=== PATIENT | female | born 1935 | race Asian ===

== ENCOUNTER 2019-09-01 10:40 | Inpatient (IN) | payer OTHER ==
[~2019-09-01] VITALS: Ht 152.4 cm; Wt 49.2 kg
[2019-09-01] MEDS ORDERED: DEXTROSE (50%) 50ML SYRG IV ONE (10:45)
[2019-09-01] MEDS ORDERED: SODIUM CHLORIDE 0.9% 500 ML IVB ONE (10:49)
[2019-09-01] MEDS ORDERED: cloNIDine HCL 0.1 MG TAB PO ONE (11:30)
[2019-09-01 12:03] LABS: Basophils # (auto) 0 10 ^3/uL (0-0.2); Basophils % (auto) 0.6 % (0.0-2.0); Eosinophils # (auto) 0 10 ^3/uL (0-0.8); Eosinophils % (auto) 0.1 % (0.0-7.0); Hematocrit 32.5 % (36.0-46.0); Hemoglobin 10.8 g/dL (12.2-16.2); Lymphocytes # (auto) 0.4 10 ^3/uL (0.4-5.4); Lymphocytes % (auto) 10.9 % (10.0-50.0); Mean Corpuscular Hemoglobin 31.8 pg (28.0-32.0); Mean Corpuscular Hgb Conc. 33.2 g/dL (32.0-36.0); Mean Corpuscular Volume 95.9 fL (80.0-100.0); Monocytes # (auto) 0.1 10 ^3/uL (0-1.3); Monocytes % (auto) 2.3 % (0.0-12.0); Neutrophils # (auto) 3.3 10 ^3/uL (1.6-8.6); Neutrophils % (auto) 86.1 % (37.0-80.0); Nucleated Red Blood Cells % 0.1 %; Platelet Count (auto) 216 10^3/uL (140-450); Red Blood Cells 3.39 10^6/uL (4.0-5.20); Red Cell Distribution Width 14.2 % (11.8-14.3); White Blood Cell 3.8 10^3/uL (4.4-10.8)
[2019-09-01 12:21] LABS: Albumin 2.5 g/dL (3.4-5.0); Anion Gap 7 (5-15); Blood Urea Nitrogen 29 mg/dL (7-18); Calcium 8.4 mg/dL (8.5-10.1); Carbon Dioxide 23 mmol/L (21-32); Chloride 112 mmol/L (98-107); Glucose 142 mg/dL (74-106); Sodium 142 mmol/L (136-145)
[2019-09-01 12:26] LABS: Alanine Aminotransferase 14 U/L (13-56); Alkaline Phosphatase 43 U/L (45-117); Aspartate Aminotransferase 24 U/L (15-37); BUN/Creatinine Ratio 16.7; Bilirubin, Total 0.4 mg/dL (0.2-1.0); Blood Alcohol < 3.0 mg/dL (0-5); GFR African American 36 mL/min; GFR Non-African American 30 mL/min; Total Protein 6.1 g/dL (6.4-8.2)
[2019-09-01] MEDS ORDERED: POTASSIUM CHL 20MEQ/100ML 100 ML IV ONE (12:45)
[2019-09-01] MEDS ORDERED: hydrALAZINE HCL 20 MG/ML VL IV ONE (13:45)
[2019-09-01] MEDS ORDERED: MORPHINE SULF INJ 2 MG/ML SYRINGE 1ML IV PRN (14:45)
[2019-09-01] MEDS ORDERED: NITROGLYCERIN 0.4 MG SL TAB SL PRN (14:45)
[2019-09-01] MEDS ORDERED: DEXTROSE (50%) 50ML SYRG IV PRN (15:00)
[2019-09-01] MEDS ORDERED: POTASSIUM EFFERVESENT TAB 25 MEQ PO ONE (15:00)
[2019-09-01] MEDS ORDERED: LACTULOSE 20Gm/30ML SOLN PO PRN (15:00)
[2019-09-01] MEDS ORDERED: ONDANSETRON HCL 4 MG/2 ML VIAL IV PRN (15:00)
[2019-09-01] MEDS ORDERED: ACETAMINOPHEN 500 MG TAB PO PRN (15:00)
[2019-09-01] MEDS ORDERED: traMADol HCL 50 MG TAB PO PRN (15:00)
[2019-09-01] MEDS: SODIUM CHLORIDE 0.9% 1,000 ML IV SCH (15:22)
[2019-09-01] MEDS: ACCU-CHEK COMFORT CURVE STRIP VI SCH ×2 (17:13→20:00)
[2019-09-01] MEDS ORDERED: GABA100C9 PO (18:44)
[2019-09-01] MEDS ORDERED: GLIP2.5T28 PO (18:44)
[2019-09-01] MEDS ORDERED: FURO20TA3 PO (18:44)
[2019-09-01] MEDS ORDERED: INSU1INJ4 SC (18:44)
[2019-09-01] MEDS ORDERED: CARV12.544 PO (18:44)
[2019-09-01] MEDS ORDERED: POTA10TA75 PO (18:44)
[2019-09-01] MEDS ORDERED: HYDR50TA15 PO (18:44)
[2019-09-01] MEDS ORDERED: ATOR20TA50 PO (18:46)
[2019-09-01] MEDS ORDERED: MULT-1018 PO (18:51)
[2019-09-01] MEDS ORDERED: CHOL20007 PO (18:51)
[2019-09-01] MEDS ORDERED: EPOE10003 IJ (18:55)
[2019-09-01] MEDS ORDERED: ISOS30TA4 PO (18:56)
[2019-09-01] MEDS: hydrALAZINE HCL 20 MG/ML VL IV PRN ×2 (20:32→22:58)
[2019-09-01 22:00] VITALS: BP 162/69
--- NOTE | 2019-09-01 22:00 | NUR ---
Telemetry admit from ER Patient admitted to Telemetry unit. Patient oriented to, primary RN, unit, room, bed, and unit policies regarding patient care and visiting hours. Patient now on continuous telemetry monitoring, tele box # [id number] and telemetry reading on arrival to unit is sinus rhythm. Patient weighed by bedscale and encouraged to call if they need something. All questions and concerns addressed, patient verbalized understanding. Safety precautions maintained bed is in lowest position and locked, bed rails 2x. Call light and bedside table are within reach.
[2019-09-01 22:05] VITALS: BP 162/69
--- NOTE | 2019-09-01 22:58 | NUR ---
Elevated Blood Pressure Patient BP 162/69 HR: 61, Medicated per MD orders IVP Hydralazine 10mg. At this time patient has no s/s of distress or SOB. Will continue to monitor Q1 and PRN.
--- NOTE | 2019-09-02 | NUR ---
Paged hospitalist Patient continuous to sustain high blood pressure. Awaiting call back. At this time patient has no s/s of distress or SOB. Will continue to monitor Q1 and PRN.
--- NOTE | 2019-09-02 00:56 | NUR ---
Call back from hospitalist Informed of patient's sustained high blood pressure. New orders received. Read back and verified, orders inputed. Will continue to monitor patient Q1 and PRN.
[2019-09-02] MEDS ORDERED: cloNIDine HCL 0.1 MG TAB PO ONE (01:15)
[2019-09-02] MEDS: hydrALAZINE HCL 20 MG/ML VL IV PRN ×3 (03:09→11:18)
[2019-09-02] MEDS: SODIUM CHLORIDE 0.9% 1,000 ML IV SCH ×2 (03:17→15:47)
[2019-09-02] MEDS: ACCU-CHEK COMFORT CURVE STRIP VI SCH ×5 (04:00→16:00)
[2019-09-02 05:00] VITALS: BP 163/65
--- NOTE | 2019-09-02 05:16 | NUR ---
Call back from hospitalist Informed hospitalist of sustained high blood pressure. BP 163/65 HR 59. New orders received, read back and verified, orders inputed. Will continue to monitor patient Q1 and PRN. At this time patient has no s/s of distress or SOB.
[2019-09-02] MEDS ORDERED: hydrALAZINE HCL 20 MG/ML VL IV ONE (05:30)
--- NOTE | 2019-09-02 07:30 | NUR ---
Opening Shift Note Assumed care of patient, awake and alert. No S/S of distress/SOB or pain. Instructed on POC and to call for assist PRN, will continue to monitor for changes Q1hr and PRN. Fall precautions in place per safety protocol.
[2019-09-02 07:31] LABS: Basophils # (auto) 0 10 ^3/uL (0-0.2); Eosinophils # (auto) 0.1 10 ^3/uL (0-0.8); Eosinophils % (auto) 2.6 % (0.0-7.0); Hematocrit 30.1 % (36.0-46.0); Hemoglobin 9.9 g/dL (12.2-16.2); Lymphocytes # (auto) 0.8 10 ^3/uL (0.4-5.4); Lymphocytes % (auto) 16.2 % (10.0-50.0); Mean Corpuscular Hemoglobin 31.5 pg (28.0-32.0); Mean Corpuscular Hgb Conc. 32.7 g/dL (32.0-36.0); Mean Corpuscular Volume 96.3 fL (80.0-100.0); Monocytes # (auto) 0.2 10 ^3/uL (0-1.3); Neutrophils # (auto) 3.6 10 ^3/uL (1.6-8.6); Neutrophils % (auto) 75.2 % (37.0-80.0); Nucleated Red Blood Cells % 0.1 %; Platelet Count (auto) 181 10^3/uL (140-450); Red Blood Cells 3.13 10^6/uL (4.0-5.20); Red Cell Distribution Width 14.1 % (11.8-14.3); White Blood Cell 4.8 10^3/uL (4.4-10.8)
--- NOTE | 2019-09-02 07:34 | NUR ---
End of Shift Note Endorsed care to dayshift RN. At this time patient has no s/s of distress or SOB, no complaints.
[2019-09-02 07:42] LABS: Urine Bacteria MANY /hpf (None Seen); Urine Blood Negative /uL (Negative); Urine Hyaline Cast MANY /lpf (0 - 2); Urine Mucus MANY (None Seen); Urine Specific Gravity 1.015 (1.001-1.035); Urine WBC 176 /hpf (0 - 5); Urine WBC Clumps PRESENT /hpf (None Seen)
[2019-09-02 07:50] LABS: Albumin 2.2 g/dL (3.4-5.0); Calcium 7.7 mg/dL (8.5-10.1); Potassium 3.8 mmol/L (3.5-5.1)
[2019-09-02 07:54] LABS: BUN/Creatinine Ratio 16.8; Bilirubin, Total 0.4 mg/dL (0.2-1.0); Total Protein 5.4 g/dL (6.4-8.2)
[2019-09-02 09:00] VITALS: BP 178/70
[2019-09-02] MEDS ORDERED: PANTOPRAZOLE 40 MG TAB PO SCH (10:00)
[2019-09-02] MEDS ORDERED: levoFLOXacin 500MG 100 ML IV ONE (10:00)
[2019-09-02] MEDS ORDERED: ENOXAPARIN SOD 30 MG/0.3 ML SYRINGE SC SCH (10:00)
[2019-09-02 13:42] VITALS: BP_SYST 129; BP_SYST 156; BP_DIAS 83; BP_DIAS 94
--- NOTE | 2019-09-02 14:12 | NUR ---
Hospitalist MD Rdz at bedside, aware of patient status. New orders for D/C Received, will carry out new orders.
[2019-09-02 18:17] VITALS: BP 156/83
--- NOTE | 2019-09-02 18:39 | NUR ---
Discharge instructions given as ordered. Encourage to follow up with PMD as instructed. All questions and concerns addressed. Patient verbalized understanding. Medication reconciliation form completed and copy given to patient. IV removed with catheter intact, pressure dressing applied. Telemetry unit returned to ICU. Patient taken to vehicle via wheelchair with all personal belongings, accompanied by staff. No distress noted at time of departure.
[2019-09-03] MEDS ORDERED: levoFLOXacin 250MG 50 ML IV SCH (10:00)
== END 2019-09-02 18:39 | disposition home or self-care (01) | DRG 637 ==
LOC: ER 10:40 → TELE 10:41 → TELE-WESTW 22:59
PROVIDERS: ADMIT Internal Medicine; ATTEND Internal Medicine
DX: E11.649 Type 2 diabetes mellitus with hypoglycemia without coma (principal); G93.41 Metabolic encephalopathy; E44.0 Moderate protein-calorie malnutrition; I16.1 Hypertensive emergency; N17.0 Acute kidney failure with tubular necrosis; D63.1 Anemia in chronic kidney disease; E11.22 Type 2 diabetes mellitus with diabetic chronic kidney disease; E78.5 Hyperlipidemia, unspecified; E87.6 Hypokalemia; I12.9 Hypertensive chronic kidney disease with stage 1 through stage 4 chronic kidney disease, or unspecified chronic kidney disease; N18.3 Chronic kidney disease, stage 3 (moderate); E11.21 Type 2 diabetes mellitus with diabetic nephropathy; Z79.4 Long term (current) use of insulin; Z82.49 Family history of ischemic heart disease and other diseases of the circulatory system; Z90.49 Acquired absence of other specified parts of digestive tract; Z68.21 Body mass index [BMI] 21.0-21.9, adult
CPT/HCPCS: 36415; 71045; 80053; 80320; 81001; 82962; 83036; 83880; 85025; 93005; G0378; J1956; J3480

== ENCOUNTER 2019-10-04 17:29 | Inpatient (IN) | payer OTHER ==
[~2019-10-04] VITALS: Ht 152.4 cm; Wt 54.0 kg
[~2019-10-04 17:29] MED LIST: ATOR20TA50 PO; CARV12.544 PO; CHOL20007 PO; EPOE10003 IJ; FURO20TA3 PO; GABA100C9 PO; GLIP2.5T28 PO; HYDR50TA15 PO; INSU1INJ4 SC; ISOS30TA4 PO; MULT-1018 PO; POTA10TA75 PO
[2019-10-04 18:20] LABS: Basophils # (auto) 0 10 ^3/uL (0-0.2); Basophils % (auto) 0.8 % (0.0-2.0); Eosinophils # (auto) 0.1 10 ^3/uL (0-0.8); Eosinophils % (auto) 1.6 % (0.0-7.0); Hematocrit 33.1 % (36.0-46.0); Hemoglobin 10.6 g/dL (12.2-16.2); Lymphocytes # (auto) 0.9 10 ^3/uL (0.4-5.4); Mean Corpuscular Hemoglobin 30.2 pg (28.0-32.0); Mean Corpuscular Volume 94.4 fL (80.0-100.0); Monocytes # (auto) 0.2 10 ^3/uL (0-1.3); Monocytes % (auto) 5.3 % (0.0-12.0); Neutrophils # (auto) 3.3 10 ^3/uL (1.6-8.6); Neutrophils % (auto) 72.3 % (37.0-80.0); Platelet Count (auto) 210 10^3/uL (140-450); Red Blood Cells 3.51 10^6/uL (4.0-5.20); Red Cell Distribution Width 14.8 % (11.8-14.3); White Blood Cell 4.6 10^3/uL (4.4-10.8)
[2019-10-04 18:35] LABS: Albumin 2.6 g/dL (3.4-5.0); Calcium 8.3 mg/dL (8.5-10.1); Potassium 3.3 mmol/L (3.5-5.1)
[2019-10-04 18:41] LABS: BUN/Creatinine Ratio 26.5; Bilirubin, Total 0.3 mg/dL (0.2-1.0); Total Protein 6.5 g/dL (6.4-8.2)
[2019-10-04 18:57] LABS: Urine Amorphous Crystal FEW /hpf (None Seen); Urine Bacteria MANY /hpf (None Seen); Urine Blood Negative /uL (Negative); Urine Hyaline Cast FEW /lpf (0 - 2); Urine Mucus FEW (None Seen); Urine Specific Gravity 1.016 (1.001-1.035); Urine WBC 50 /hpf (0 - 5); Urine WBC Clumps PRESENT /hpf (None Seen)
[2019-10-04] MEDS ORDERED: ENOXAPARIN SOD 60 MG/0.6 ML SYRINGE SC ONE (21:00)
[2019-10-04] MEDS ORDERED: cefTRIAXone 1GM/50ML D5W 50 ML IV ONE (21:00)
[2019-10-04] MEDS ORDERED: AZITHROMYCIN 500MG/ 250ML 250 ML IV ONE (21:15)
[2019-10-04] MEDS ORDERED: POTASSIUM CHL 20 Meq TABLET PO ONE (22:15)
[2019-10-04] MEDS ORDERED: NITROGLYCERIN 0.4 MG SL TAB SL PRN (22:15)
[2019-10-04] MEDS ORDERED: ACETAMINOPHEN 325 MG TAB PO PRN (22:15)
[2019-10-04] MEDS ORDERED: DEXTROSE (50%) 50ML SYRG IV PRN (22:15)
[2019-10-04] MEDS ORDERED: ONDANSETRON HCL 4 MG/2 ML VIAL IV PRN (22:15)
[2019-10-04] MEDS ORDERED: MORPHINE SULF INJ 2 MG/ML SYRINGE 1ML IV PRN (22:15)
[2019-10-05] VITALS (7 sets, daily range): BP systolic 150–169; BP diastolic 53–77
[2019-10-05] MEDS ORDERED: LABETALOL HCL 200 MG TAB PO ONE (01:45)
[2019-10-05] MEDS ORDERED: hydrALAZINE HCL 20 MG/ML VL IV ONE (03:15)
[2019-10-05] MEDS: ACCU-CHEK COMFORT CURVE STRIP VI SCH ×4 (06:31→21:56)
[2019-10-05] MEDS: InsuLIN REG 1unit/0.01ml Soln (100units/ml) SC SCH ×4 (06:37→21:58)
[2019-10-05 09:16] LABS: Basophils # (auto) 0 10 ^3/uL (0-0.2); Basophils % (auto) 0.7 % (0.0-2.0); Eosinophils # (auto) 0.1 10 ^3/uL (0-0.8); Eosinophils % (auto) 1.2 % (0.0-7.0); Hematocrit 28.1 % (36.0-46.0); Hemoglobin 9.3 g/dL (12.2-16.2); Lymphocytes % (auto) 18.1 % (10.0-50.0); Mean Corpuscular Hemoglobin 31.2 pg (28.0-32.0); Mean Corpuscular Hgb Conc. 33.2 g/dL (32.0-36.0); Mean Corpuscular Volume 93.9 fL (80.0-100.0); Monocytes # (auto) 0.3 10 ^3/uL (0-1.3); Monocytes % (auto) 5.2 % (0.0-12.0); Neutrophils # (auto) 4.1 10 ^3/uL (1.6-8.6); Neutrophils % (auto) 74.8 % (37.0-80.0); Platelet Count (auto) 194 10^3/uL (140-450); Red Blood Cells 2.99 10^6/uL (4.0-5.20); Red Cell Distribution Width 14.6 % (11.8-14.3); White Blood Cell 5.5 10^3/uL (4.4-10.8)
[2019-10-05 09:29] LABS: Albumin 2.3 g/dL (3.4-5.0); Calcium 8.3 mg/dL (8.5-10.1); Potassium 3.5 mmol/L (3.5-5.1)
[2019-10-05] MEDS: PANTOPRAZOLE 40 MG TAB PO SCH (09:31)
[2019-10-05] MEDS: ISOSORBIDE MONONITRATE ER 60 MG TAB PO SCH (09:32)
[2019-10-05] MEDS: CARVEDILOL 12.5 MG TAB PO SCH ×2 (09:33→22:04)
[2019-10-05 09:36] LABS: BUN/Creatinine Ratio 24.2; Bilirubin, Total 0.3 mg/dL (0.2-1.0); Total Protein 5.8 g/dL (6.4-8.2)
[2019-10-05] MEDS ORDERED: FUROSEMIDE 40 MG TAB PO SCH (10:00)
[2019-10-05] MEDS ORDERED: hydrALAZINE HCL 25 MG TAB PO SCH (10:00)
[2019-10-05] MEDS ORDERED: CHOLECALCIFEROL (VITD3) 2,000 UNIT CAP PO SCH (10:00)
[2019-10-05] MEDS ORDERED: DOXYCYCLINE 100MG/250ML 250 ML IV SCH (10:00)
[2019-10-05] MEDS ORDERED: ASCORBIC ACID 1,000 MG TAB PO SCH (10:00)
[2019-10-05] MEDS ORDERED: ZINC SULFATE 220mg CAP or TAB PO SCH (10:00)
[2019-10-05] MEDS ORDERED: cefTRIAXone 1GM/50ML D5W 50 ML IV ONE (10:45)
[2019-10-05] MEDS: hydrALAZINE HCL 25 MG TAB PO SCH ×2 (14:10→22:03)
[2019-10-05] MEDS: ATORVASTATIN 20 MG TAB PO SCH (22:05)
[2019-10-05] MEDS: GABAPENTIN 100 MG CAP PO SCH (22:06)
[2019-10-06] VITALS (7 sets, daily range): BP systolic 150–165; BP diastolic 54–66
[2019-10-06] MEDS: hydrALAZINE HCL 25 MG TAB PO SCH ×3 (06:00→22:21)
[2019-10-06] MEDS: ACCU-CHEK COMFORT CURVE STRIP VI SCH ×4 (06:32→22:03)
[2019-10-06] MEDS: InsuLIN REG 1unit/0.01ml Soln (100units/ml) SC SCH ×4 (06:33→22:19)
[2019-10-06 07:14] LABS: Basophils # (auto) 0 10 ^3/uL (0-0.2); Basophils % (auto) 0.8 % (0.0-2.0); Eosinophils # (auto) 0.1 10 ^3/uL (0-0.8); Eosinophils % (auto) 1.5 % (0.0-7.0); Hematocrit 26.4 % (36.0-46.0); Hemoglobin 8.9 g/dL (12.2-16.2); Lymphocytes # (auto) 0.8 10 ^3/uL (0.4-5.4); Lymphocytes % (auto) 16.1 % (10.0-50.0); Mean Corpuscular Hemoglobin 31.4 pg (28.0-32.0); Mean Corpuscular Hgb Conc. 33.6 g/dL (32.0-36.0); Mean Corpuscular Volume 93.4 fL (80.0-100.0); Monocytes # (auto) 0.3 10 ^3/uL (0-1.3); Monocytes % (auto) 5.3 % (0.0-12.0); Neutrophils # (auto) 3.7 10 ^3/uL (1.6-8.6); Neutrophils % (auto) 76.3 % (37.0-80.0); Platelet Count (auto) 182 10^3/uL (140-450); Red Blood Cells 2.83 10^6/uL (4.0-5.20); Red Cell Distribution Width 14.8 % (11.8-14.3); White Blood Cell 4.9 10^3/uL (4.4-10.8)
[2019-10-06 07:43] LABS: BUN/Creatinine Ratio 27.3; Calcium 7.9 mg/dL (8.5-10.1); Potassium 3.3 mmol/L (3.5-5.1)
[2019-10-06] MEDS: GABAPENTIN 100 MG CAP PO SCH ×2 (08:37→22:23)
[2019-10-06] MEDS: ISOSORBIDE MONONITRATE ER 60 MG TAB PO SCH (08:38)
[2019-10-06] MEDS: CARVEDILOL 12.5 MG TAB PO SCH ×2 (08:38→22:20)
[2019-10-06] MEDS ORDERED: FUROSEMIDE 20 MG TAB PO SCH (10:00)
[2019-10-06] MEDS ORDERED: POTASSIUM CHL 20 Meq TABLET PO ONE (10:30)
[2019-10-06] MEDS ORDERED: ASPirin 81 mg TAB PO ONE (10:45)
[2019-10-06] MEDS: cefTRIAXone 1GM/50ML D5W 50 ML IV SCH (11:31)
[2019-10-06] MEDS: PANTOPRAZOLE 40 MG TAB PO SCH (11:39)
[2019-10-06] MEDS ORDERED: predniSONE 20 MG TAB PO ONE (14:15)
[2019-10-06] MEDS ORDERED: FAMOTIDINE (10MG/ML) 2ML VL IV SCH (22:00)
[2019-10-06] MEDS ORDERED: diphenhdrAMINE HCL 25 MG CAP PO SCH (22:00)
[2019-10-06] MEDS: ATORVASTATIN 20 MG TAB PO SCH (22:23)
[2019-10-07 05:00] VITALS: BP 132/58
[2019-10-07] MEDS: hydrALAZINE HCL 25 MG TAB PO SCH ×3 (05:37→22:15)
[2019-10-07 06:24] LABS: BUN/Creatinine Ratio 22.1; Calcium 8.3 mg/dL (8.5-10.1); Potassium 3.6 mmol/L (3.5-5.1)
[2019-10-07] MEDS: ACCU-CHEK COMFORT CURVE STRIP VI SCH ×4 (06:25→22:12)
[2019-10-07] MEDS: InsuLIN REG 1unit/0.01ml Soln (100units/ml) SC SCH ×4 (06:27→22:00)
[2019-10-07 06:32] LABS: INR 1.03 (0.9-1.15); Partial Thromboplastin Time 33.2 sec (23.0-31.2)
[2019-10-07] MEDS: cefTRIAXone 1GM/50ML D5W 50 ML IV SCH (08:33)
[2019-10-07] MEDS ORDERED: SODIUM CHLORIDE 0.9% 1,000 ML IV SCH ×2 (09:00→11:00)
[2019-10-07 09:16] VITALS: BP 158/69
[2019-10-07] MEDS ORDERED: ACETYLCYSTEINE ORAL for CIN 20%(200MG/ML) 4ML PO SCH (10:00)
[2019-10-07] MEDS ORDERED: predniSONE 20 MG TAB PO SCH (10:00)
[2019-10-07 10:38] LABS: Basophils # (auto) 0 10 ^3/uL (0-0.2); Basophils % (auto) 0.1 % (0.0-2.0); Eosinophils # (auto) 0 10 ^3/uL (0-0.8); Hematocrit 26.7 % (36.0-46.0); Lymphocytes # (auto) 0.6 10 ^3/uL (0.4-5.4); Lymphocytes % (auto) 21.6 % (10.0-50.0); Mean Corpuscular Hemoglobin 31.5 pg (28.0-32.0); Mean Corpuscular Hgb Conc. 33.6 g/dL (32.0-36.0); Mean Corpuscular Volume 93.7 fL (80.0-100.0); Monocytes # (auto) 0.1 10 ^3/uL (0-1.3); Monocytes % (auto) 4.6 % (0.0-12.0); Neutrophils # (auto) 1.9 10 ^3/uL (1.6-8.6); Neutrophils % (auto) 73.7 % (37.0-80.0); Nucleated Red Blood Cells % 0.1 %; Platelet Count (auto) 194 10^3/uL (140-450); Red Blood Cells 2.85 10^6/uL (4.0-5.20); Red Cell Distribution Width 14.8 % (11.8-14.3); White Blood Cell 2.6 10^3/uL (4.4-10.8)
[2019-10-07] MEDS: GABAPENTIN 100 MG CAP PO SCH ×2 (12:35→22:14)
[2019-10-07] MEDS: ASPirin 81 mg TAB PO SCH (12:36)
[2019-10-07] MEDS: ISOSORBIDE MONONITRATE ER 60 MG TAB PO SCH (12:41)
[2019-10-07] MEDS: CARVEDILOL 12.5 MG TAB PO SCH ×2 (12:42→22:15)
[2019-10-07 13:00] VITALS: BP 188/78
[2019-10-07 17:00] VITALS: BP 201/85
[2019-10-07 22:00] VITALS: BP 163/72
[2019-10-07] MEDS: ATORVASTATIN 20 MG TAB PO SCH (22:14)
[2019-10-08 05:00] VITALS: BP 149/59
[2019-10-08] MEDS: ACCU-CHEK COMFORT CURVE STRIP VI SCH ×4 (06:24→22:07)
[2019-10-08] MEDS: hydrALAZINE HCL 25 MG TAB PO SCH ×3 (06:24→22:06)
[2019-10-08] MEDS: InsuLIN REG 1unit/0.01ml Soln (100units/ml) SC SCH ×4 (06:24→22:43)
[2019-10-08 07:45] LABS: Basophils # (auto) 0 10 ^3/uL (0-0.2); Basophils % (auto) 0.6 % (0.0-2.0); Hemoglobin 8.3 g/dL (12.2-16.2); Lymphocytes # (auto) 1.3 10 ^3/uL (0.4-5.4); Monocytes # (auto) 0.4 10 ^3/uL (0-1.3); White Blood Cell 5.5 10^3/uL (4.4-10.8)
[2019-10-08 07:49] LABS: Eosinophils # (auto) 0.1 10 ^3/uL (0-0.8); Eosinophils % (auto) 1.1 % (0.0-7.0); Hematocrit 25.1 % (36.0-46.0); Lymphocytes % (auto) 23.6 % (10.0-50.0); Mean Corpuscular Hemoglobin 30.9 pg (28.0-32.0); Mean Corpuscular Volume 93.7 fL (80.0-100.0); Neutrophils # (auto) 3.7 10 ^3/uL (1.6-8.6); Neutrophils % (auto) 66.7 % (37.0-80.0); Nucleated Red Blood Cells % 0.1 %; Platelet Count (auto) 193 10^3/uL (140-450); Red Blood Cells 2.68 10^6/uL (4.0-5.20); Red Cell Distribution Width 14.7 % (11.8-14.3)
[2019-10-08 08:05] LABS: Albumin 2.3 g/dL (3.4-5.0); Calcium 8.1 mg/dL (8.5-10.1); Potassium 3.6 mmol/L (3.5-5.1)
[2019-10-08 08:10] LABS: BUN/Creatinine Ratio 19.5; Bilirubin, Total 0.3 mg/dL (0.2-1.0); Total Protein 5.5 g/dL (6.4-8.2)
[2019-10-08 08:29] VITALS: BP 157/66
[2019-10-08] MEDS: cefTRIAXone 1GM/50ML D5W 50 ML IV SCH (08:54)
[2019-10-08 09:00] VITALS: BP 157/66
[2019-10-08] MEDS: ISOSORBIDE MONONITRATE ER 60 MG TAB PO SCH ×2 (09:51→10:04)
[2019-10-08] MEDS: ASPirin 81 mg TAB PO SCH ×2 (09:51→10:03)
[2019-10-08] MEDS: FAMOTIDINE 20 MG TAB PO SCH ×2 (09:51→10:03)
[2019-10-08] MEDS: CARVEDILOL 12.5 MG TAB PO SCH ×2 (09:52→22:00)
[2019-10-08] MEDS: GABAPENTIN 100 MG CAP PO SCH ×2 (10:06→22:06)
[2019-10-08 13:00] VITALS: BP 185/68
[2019-10-08 17:00] VITALS: BP 158/72
[2019-10-08] MEDS: hydrALAZINE HCL 20 MG/ML VL IV PRN (19:33)
[2019-10-08 22:00] VITALS: BP 149/73
[2019-10-08] MEDS: ATORVASTATIN 20 MG TAB PO SCH (22:06)
[2019-10-09] VITALS: BP 120/56
[2019-10-09 05:00] VITALS: BP 144/63
[2019-10-09] MEDS: hydrALAZINE HCL 25 MG TAB PO SCH ×3 (06:02→21:57)
[2019-10-09] MEDS: ACCU-CHEK COMFORT CURVE STRIP VI SCH ×4 (06:52→21:57)
[2019-10-09] MEDS: InsuLIN REG 1unit/0.01ml Soln (100units/ml) SC SCH ×4 (06:52→21:58)
[2019-10-09 09:00] VITALS: BP 167/67
[2019-10-09] MEDS: GABAPENTIN 100 MG CAP PO SCH ×2 (10:41→21:57)
[2019-10-09] MEDS: ASPirin 81 mg TAB PO SCH (10:41)
[2019-10-09] MEDS: cefTRIAXone 1GM/50ML D5W 50 ML IV SCH (10:41)
[2019-10-09] MEDS: ISOSORBIDE MONONITRATE ER 60 MG TAB PO SCH (10:42)
[2019-10-09] MEDS: FAMOTIDINE 20 MG TAB PO SCH (10:42)
[2019-10-09] MEDS: CARVEDILOL 12.5 MG TAB PO SCH ×2 (10:43→21:58)
[2019-10-09] MEDS: hydrALAZINE HCL 20 MG/ML VL IV PRN (11:57)
[2019-10-09] MEDS ORDERED: NIFEdipine ER 30 MG TAB PO ONE (12:45)
[2019-10-09 13:16] VITALS: BP 175/61
[2019-10-09 17:00] VITALS: BP 136/62
[2019-10-09 17:21] LABS: BUN/Creatinine Ratio 24.2; Calcium 7.8 mg/dL (8.5-10.1); Potassium 4.2 mmol/L (3.5-5.1)
[2019-10-09] MEDS: ATORVASTATIN 20 MG TAB PO SCH (21:57)
[2019-10-09 22:00] VITALS: BP 125/59
[2019-10-09] MEDS ORDERED: ACETYLCYSTEINE ORAL for CIN 20%(200MG/ML) 4ML PO SCH (22:00)
[2019-10-10 05:00] VITALS: BP 212/59
[2019-10-10] MEDS: InsuLIN REG 1unit/0.01ml Soln (100units/ml) SC SCH ×4 (06:00→22:00)
[2019-10-10] MEDS: hydrALAZINE HCL 25 MG TAB PO SCH ×3 (06:00→22:19)
[2019-10-10] MEDS: ACCU-CHEK COMFORT CURVE STRIP VI SCH ×4 (06:00→22:19)
[2019-10-10] MEDS ORDERED: diphenhdrAMINE HCL 25 MG CAP PO ONE (07:00)
[2019-10-10 07:09] LABS: Basophils # (auto) 0 10 ^3/uL (0-0.2); Eosinophils # (auto) 0.2 10 ^3/uL (0-0.8); Hemoglobin 8.4 g/dL (12.2-16.2); Mean Corpuscular Hemoglobin 31.3 pg (28.0-32.0); Mean Corpuscular Hgb Conc. 33.2 g/dL (32.0-36.0); Mean Corpuscular Volume 94.5 fL (80.0-100.0); Neutrophils # (auto) 3.7 10 ^3/uL (1.6-8.6); White Blood Cell 5.5 10^3/uL (4.4-10.8)
[2019-10-10 07:11] LABS: Basophils % (auto) 0.5 % (0.0-2.0); Eosinophils % (auto) 3.7 % (0.0-7.0); Hematocrit 25.2 % (36.0-46.0); Lymphocytes # (auto) 1.1 10 ^3/uL (0.4-5.4); Lymphocytes % (auto) 19.8 % (10.0-50.0); Monocytes # (auto) 0.5 10 ^3/uL (0-1.3); Monocytes % (auto) 9.5 % (0.0-12.0); Neutrophils % (auto) 66.5 % (37.0-80.0); Platelet Count (auto) 199 10^3/uL (140-450); Red Blood Cells 2.67 10^6/uL (4.0-5.20); Red Cell Distribution Width 14.4 % (11.8-14.3)
[2019-10-10 07:18] LABS: Partial Thromboplastin Time 30.7 sec (23.0-31.2)
[2019-10-10 07:40] LABS: Potassium 4.2 mmol/L (3.5-5.1)
[2019-10-10] MEDS ORDERED: LIDOCAINE 2%HCL (LOCAL ANESTH.) INJ 20ML MDV ONE (07:45)
[2019-10-10] MEDS ORDERED: HEPARIN IN NS 1000Units/500mL 0 ML ONE (07:45)
[2019-10-10] MEDS ORDERED: IODIXANOL 320MG/ML 100ML BTL IV ONE (07:45)
[2019-10-10 07:47] LABS: Albumin 2.2 g/dL (3.4-5.0); BUN/Creatinine Ratio 25.4; Bilirubin, Total 0.2 mg/dL (0.2-1.0); Calcium 7.8 mg/dL (8.5-10.1); Total Protein 5.4 g/dL (6.4-8.2)
[2019-10-10 09:00] VITALS: BP 124/56
[2019-10-10] MEDS: FAMOTIDINE 20 MG TAB PO SCH (09:49)
[2019-10-10] MEDS: ISOSORBIDE MONONITRATE ER 60 MG TAB PO SCH (09:49)
[2019-10-10] MEDS: ASPirin 81 mg TAB PO SCH (09:49)
[2019-10-10] MEDS: GABAPENTIN 100 MG CAP PO SCH ×2 (09:50→22:18)
[2019-10-10] MEDS: cefTRIAXone 1GM/50ML D5W 50 ML IV SCH (09:51)
[2019-10-10] MEDS: CARVEDILOL 12.5 MG TAB PO SCH ×2 (09:51→22:00)
[2019-10-10] MEDS ORDERED: NIFEdipine ER 30 MG TAB PO SCH (10:00)
[2019-10-10] MEDS ORDERED: hydrALAZINE HCL 20 MG/ML VL IV PRN (11:15)
[2019-10-10 13:00] VITALS: BP 117/55
[2019-10-10 17:00] VITALS: BP 117/54
[2019-10-10 22:00] VITALS: BP 124/59
[2019-10-10] MEDS: ATORVASTATIN 20 MG TAB PO SCH (22:18)
[2019-10-11 05:00] VITALS: BP 115/75
[2019-10-11] MEDS: hydrALAZINE HCL 25 MG TAB PO SCH ×3 (06:20→21:47)
[2019-10-11] MEDS: InsuLIN REG 1unit/0.01ml Soln (100units/ml) SC SCH ×4 (06:45→21:54)
[2019-10-11] MEDS: ACCU-CHEK COMFORT CURVE STRIP VI SCH ×4 (06:45→21:50)
[2019-10-11 06:47] LABS: Albumin 2.2 g/dL (3.4-5.0); BUN/Creatinine Ratio 24.7; Calcium 7.9 mg/dL (8.5-10.1); Potassium 4.8 mmol/L (3.5-5.1)
[2019-10-11 06:50] LABS: Bilirubin, Total 0.2 mg/dL (0.2-1.0); Total Protein 5.5 g/dL (6.4-8.2)
[2019-10-11 08:00] VITALS: BP 122/58
[2019-10-11] MEDS: FAMOTIDINE 20 MG TAB PO SCH (09:30)
[2019-10-11] MEDS: ASPirin 81 mg TAB PO SCH (09:30)
[2019-10-11] MEDS: CARVEDILOL 12.5 MG TAB PO SCH ×2 (09:31→21:50)
[2019-10-11] MEDS: ISOSORBIDE MONONITRATE ER 60 MG TAB PO SCH (09:31)
[2019-10-11] MEDS: GABAPENTIN 100 MG CAP PO SCH ×2 (09:31→21:46)
[2019-10-11] MEDS: cefTRIAXone 1GM/50ML D5W 50 ML IV SCH (09:32)
[2019-10-11] MEDS ORDERED: SODIUM CHLORIDE 0.9% 1,000 ML IV SCH (11:00)
[2019-10-11] MEDS: SODIUM CHLORIDE 0.9% 1,000 ML IV SCH ×2 (11:15→23:50)
[2019-10-11 12:00] VITALS: BP 137/64
[2019-10-11 16:00] VITALS: BP 137/57
[2019-10-11] MEDS: ATORVASTATIN 20 MG TAB PO SCH (21:47)
[2019-10-11 22:03] VITALS: BP 145/60
[2019-10-12 05:19] VITALS: BP 157/72
[2019-10-12 06:10] LABS: Potassium 4.7 mmol/L (3.5-5.1)
[2019-10-12] MEDS: hydrALAZINE HCL 25 MG TAB PO SCH ×3 (06:10→21:03)
[2019-10-12 06:25] LABS: BUN/Creatinine Ratio 24.6; Bilirubin, Total 0.1 mg/dL (0.2-1.0); Calcium 7.3 mg/dL (8.5-10.1); Total Protein 4.9 g/dL (6.4-8.2)
[2019-10-12] MEDS: ACCU-CHEK COMFORT CURVE STRIP VI SCH ×4 (06:46→21:04)
[2019-10-12] MEDS: InsuLIN REG 1unit/0.01ml Soln (100units/ml) SC SCH ×4 (06:47→21:05)
[2019-10-12 09:16] VITALS: BP 148/53
[2019-10-12] MEDS: ASPirin 81 mg TAB PO SCH (09:23)
[2019-10-12] MEDS: cefTRIAXone 1GM/50ML D5W 50 ML IV SCH (09:23)
[2019-10-12] MEDS: CARVEDILOL 12.5 MG TAB PO SCH ×2 (09:24→21:04)
[2019-10-12] MEDS: FAMOTIDINE 20 MG TAB PO SCH (09:24)
[2019-10-12] MEDS: ISOSORBIDE MONONITRATE ER 60 MG TAB PO SCH (09:24)
[2019-10-12] MEDS: GABAPENTIN 100 MG CAP PO SCH ×2 (09:24→21:04)
[2019-10-12 12:44] VITALS: BP_SYST 15; BP_SYST 157; BP_DIAS 57
[2019-10-12] MEDS: SODIUM CHLORIDE 0.9% 1,000 ML IV SCH (12:49)
[2019-10-12 17:02] VITALS: BP 137/60
[2019-10-12 21:00] VITALS: BP 137/47
[2019-10-12] MEDS: ATORVASTATIN 20 MG TAB PO SCH (21:04)
[2019-10-13] MEDS: SODIUM CHLORIDE 0.9% 1,000 ML IV SCH ×2 (00:45→06:44)
[2019-10-13 05:00] VITALS: BP 163/68
[2019-10-13 06:07] LABS: Albumin 1.9 g/dL (3.4-5.0); Calcium 7.3 mg/dL (8.5-10.1); Potassium 4.3 mmol/L (3.5-5.1)
[2019-10-13] MEDS: hydrALAZINE HCL 25 MG TAB PO SCH ×3 (06:07→21:27)
[2019-10-13] MEDS: InsuLIN REG 1unit/0.01ml Soln (100units/ml) SC SCH ×4 (06:08→21:28)
[2019-10-13] MEDS: ACCU-CHEK COMFORT CURVE STRIP VI SCH ×4 (06:08→21:28)
[2019-10-13 06:11] LABS: BUN/Creatinine Ratio 29.8; Bilirubin, Total 0.1 mg/dL (0.2-1.0); Total Protein 4.8 g/dL (6.4-8.2)
[2019-10-13 09:00] VITALS: BP 150/60
[2019-10-13] MEDS: FAMOTIDINE 20 MG TAB PO SCH (09:37)
[2019-10-13] MEDS: ASPirin 81 mg TAB PO SCH (09:37)
[2019-10-13] MEDS: cefTRIAXone 1GM/50ML D5W 50 ML IV SCH (09:37)
[2019-10-13] MEDS: GABAPENTIN 100 MG CAP PO SCH ×2 (09:37→21:28)
[2019-10-13] MEDS: ISOSORBIDE MONONITRATE ER 60 MG TAB PO SCH (09:38)
[2019-10-13] MEDS: CARVEDILOL 12.5 MG TAB PO SCH ×2 (09:38→21:27)
[2019-10-13 13:00] VITALS: BP 150/53
[2019-10-13 17:11] VITALS: BP 154/71
[2019-10-13] MEDS: ATORVASTATIN 20 MG TAB PO SCH (21:27)
[2019-10-13 21:46] VITALS: BP 159/71
[2019-10-14] MEDS: SODIUM CHLORIDE 0.9% 1,000 ML IV SCH ×2 (00:35→14:15)
[2019-10-14 05:00] VITALS: BP 158/64
[2019-10-14] MEDS: hydrALAZINE HCL 25 MG TAB PO SCH ×2 (06:10→14:31)
[2019-10-14] MEDS: ACCU-CHEK COMFORT CURVE STRIP VI SCH ×2 (06:11→11:08)
[2019-10-14] MEDS: InsuLIN REG 1unit/0.01ml Soln (100units/ml) SC SCH ×2 (06:11→11:09)
[2019-10-14 06:24] LABS: Calcium 7.6 mg/dL (8.5-10.1)
[2019-10-14] MEDS: cefTRIAXone 1GM/50ML D5W 50 ML IV SCH (08:59)
[2019-10-14] MEDS: GABAPENTIN 100 MG CAP PO SCH (08:59)
[2019-10-14] MEDS: ASPirin 81 mg TAB PO SCH (08:59)
[2019-10-14] MEDS: FAMOTIDINE 20 MG TAB PO SCH (08:59)
[2019-10-14 09:00] VITALS: BP 178/56
[2019-10-14] MEDS: CARVEDILOL 12.5 MG TAB PO SCH (09:00)
[2019-10-14] MEDS: ISOSORBIDE MONONITRATE ER 60 MG TAB PO SCH (09:00)
[2019-10-14 13:00] VITALS: BP 136/67
== END 2019-10-14 16:30 | disposition home health service (06) | DRG 871 ==
LOC: ER 17:29 → TELE 17:30 → TELE-CENTR 10-05 05:32
PROVIDERS: ADMIT Nurse Practitioner; ATTEND Internal Medicine
DX: A41.9 Sepsis, unspecified organism (principal); I21.4 Non-ST elevation (NSTEMI) myocardial infarction; N17.0 Acute kidney failure with tubular necrosis; J18.9 Pneumonia, unspecified organism; E43 Unspecified severe protein-calorie malnutrition; I50.33 Acute on chronic diastolic (congestive) heart failure; I13.0 Hypertensive heart and chronic kidney disease with heart failure and stage 1 through stage 4 chronic kidney disease, or unspecified chronic kidney disease; N18.4 Chronic kidney disease, stage 4 (severe); N13.6 Pyonephrosis; Z68.1 Body mass index [BMI] 19.9 or less, adult; F03.90 Unspecified dementia, unspecified severity, without behavioral disturbance, psychotic disturbance, mood disturbance, and anxiety; E87.6 Hypokalemia; D63.1 Anemia in chronic kidney disease; E11.22 Type 2 diabetes mellitus with diabetic chronic kidney disease; E78.5 Hyperlipidemia, unspecified; I25.10 Atherosclerotic heart disease of native coronary artery without angina pectoris; Z79.4 Long term (current) use of insulin; Z82.49 Family history of ischemic heart disease and other diseases of the circulatory system; Z91.041 Radiographic dye allergy status; Z95.5 Presence of coronary angioplasty implant and graft; Z20.828 Contact with and (suspected) exposure to other viral communicable diseases
CPT/HCPCS: 36415; 71045; 76775; 80048; 80053; 81001; 82306; 82570; 82728; 82962; 83036; 83605; 83615; 83735; 83880; 83970; 84100; 84156; 84300; 84484; 85025; 85379; 85610; 85730; 86141; 87040; 87070; 87081; 87086; 87804; 87880; 93005; 93306; 96365; 96372; 97110; 97116; 97530; G0378; J0696; J1815; J2405; J3490; Q9967